=== PATIENT | male | born 1960 | race African-American/Black ===

== ENCOUNTER 2020-07-17 07:09 | Outpatient (CLI) | payer BC ==
[2020-07-17 08:05] LABS: BILIRUBIN,URINE NEGATIVE (NEGATIVE); BLOOD, URINE NEGATIVE Ery/uL (NEGATIVE); COLOR,URINE YELLOW (YELLOW); LEUKOCYTE ESTERASE ,URINE NEGATIVE (NEGATIVE); NITRITE, URINE NEGATIVE (NEGATIVE); PROTEIN,URINE NEGATIVE (NEGATIVE); UGLUCOSE NEGATIVE (NEGATIVE); UROBILINOGEN,URINE 0.2 EU/dL (0.2)
[2020-07-17 08:23] LABS: BASOPHILS # (AUTO) 0.1 /CMM (0.0-0.2); BASOPHILS % (AUTO) 1.2 % (0.0-2.0); EOSINOPHILS % (AUTO) 2.6 % (0.0-6.0); HEMATOCRIT 45 % (39-51); HEMOGLOBIN 14.8 g/dL (13.5-17.5); LYMPHOCYTES # (AUTO) 1.4 /CMM (0.8-4.8); LYMPHOCYTES % (AUTO) 33.3 % (20.0-44.0); MEAN CORPUSCULAR HGB CONC 33 g/dl (31.0-36.0); MEAN CORPUSCULAR VOLUME 86 fL (80-96); MONOCYTES # (AUTO) 0.3 /CMM (0.1-1.30); NEUTROPHILS # (AUTO) 2.4 /CMM (1.8-8.9); NEUTROPHILS % (AUTO) 54.9 % (43.0-81.0); PLATELET COUNT (AUTO) 126 /CMM (150-450); WHITE BLOOD COUNT (AUTO) 4.3 K/uL (4.3-11.0)
[2020-07-17 08:36] LABS: ALBUMIN 3.6 g/dL (3.4-5.0); BILIRUBIN,TOTAL 0.4 mg/dL (0.2-1.0); CALCIUM, SERUM 8.6 mg/dL (8.5-10.1); CREATININE 1.1 mg/dL (0.6-1.3); POTASSIUM 3.9 mmol/L (3.5-5.1); TOTAL PROTEIN, SERUM 7.4 g/dL (6.4-8.2)
[2020-07-17 08:51] LABS: PROSTATE SPECIFIC ANTIGEN SCR 1.06 ng/mL (0.00-4.00); THYROID STIMULATING HORMONE 1.341 uIU/mL (0.358-3.74)
== END 2020-07-17 23:59 | disposition home or self-care (01) ==
LOC: LAB 07:09
PROVIDERS: ATTEND Legal Medicine
DX: R30.0 Dysuria (principal)
CPT/HCPCS: 36415; 80053-TC; 80061-TC; 81001; 84153-TC; 84443-TC; 85025-TC; 87086-TC

== ENCOUNTER 2020-08-01 11:22 | Emergency (ER) | payer BC, OTHER ==
[~2020-08-01] VITALS: Ht 175.3 cm; Wt 77.1 kg
[2020-08-01 12:08] VITALS: BP 135/81
--- NOTE | 2020-08-01 12:33 | NUR ---
covid 19 testing, denies any symptoms, swab collected and sent to lab
== END 2020-08-01 12:34 | disposition home or self-care (01) ==
LOC: ER 11:27
DX: Z20.828 Contact with and (suspected) exposure to other viral communicable diseases (principal)
CPT/HCPCS: 99283; C9803; U0003